=== PATIENT | male | born 1945 | race Caucasian/White ===

== ENCOUNTER 2018-07-21 23:51 | Inpatient (IN) | payer MEDICARE, OTHER ==
[~2018-07-21] VITALS: Ht 185.4 cm; Wt 151.0 kg
[~2018-07-21 23:51] MED LIST: ASPIRIN81 M2 PO; DOXAZOSIN PO; LANTUS100 UNIT/2 SQ; MULTI-VITAMIN1 EAC4 PO; Z.0.ALLOPURINOL300 M PO; Z.0.ATENOLOL50 MG PO; Z.0.AVODART0.5 MG PO; Z.0.CRESTOR40 MG PO; Z.0.DIOVAN320 MG PO; Z.0.HUMULIN R500 UNI IJ; Z.0.HYDROCHLOROTHIA5 PO; Z.0.JANUVIA50 MG PO; Z.0.LEVOXYL137 MCG PO; Z.6.FISH OIL 1,0001 PO; [UNRECOGNIZED DRUG - CODE] PO; [UNRECOGNIZED DRUG - OTHER] PO
[2018-07-22] VITALS (8 sets, daily range): BP systolic 116–195; BP diastolic 65–93
[2018-07-22 00:18] LABS: BASOPHILS % 0.4 % (0.0-1.0); EOSINOPHILS % 0.3 % (0.0-6.0); HEMOGLOBIN 13.9 g/dL (14.0-18.0); LYMPHOCYTES # (AUTO) 0.5 (1.0-3.2); LYMPHOCYTES % 5.9 % (18.0-39.1); MEAN CORPUSCULAR HEMOGLOBIN 31.4 pg (28-32); MEAN CORPUSCULAR HGB CONC 33.9 g/dL (31-35); MEAN CORPUSCULAR VOLUME 92.6 fL (81-99); MONOCYTES # (AUTO) 0.7 (0.2-0.8); MONOCYTES % 9.2 % (4.4-11.3); NEUTROPHILS # (AUTO) 6.7 (2.1-6.9); NEUTROPHILS % 83.9 % (38.7-80.0); PLATELET COUNT 211 x10e3/uL (140-360); RED BLOOD COUNT 4.43 x10e6/uL (4.3-5.7); RED CELL DISTRIBUTION WIDTH 13.6 % (11.7-14.4)
[2018-07-22] MEDS ORDERED: BRIMONIDINE TART5 ML OU (00:24)
[2018-07-22] MEDS ORDERED: SUPER B-50 COM1 EACH PO (00:24)
[2018-07-22] MEDS ORDERED: HYDROCHLOROTHIA25 MG PO (00:24)
[2018-07-22] MEDS ORDERED: CRESTOR20 MG PO (00:24)
[2018-07-22] MEDS ORDERED: VESICARE5 MG PO (00:24)
[2018-07-22] MEDS ORDERED: CEPHALEXIN500 MG PO (00:24)
[2018-07-22] MEDS ORDERED: TRAVATAN Z5 ML OU (00:24)
[2018-07-22] MEDS ORDERED: LOSARTAN POTASS25 MG PO (00:24)
[2018-07-22] MEDS ORDERED: VITAMIN D32000 UNIT PO (00:24)
[2018-07-22] MEDS ORDERED: FISH OIL 1,0001 EAC3 PO (00:24)
[2018-07-22] MEDS ORDERED: ZYRTEC10 MG PO (00:24)
[2018-07-22] MEDS ORDERED: VANCOMYCIN 1GM/NS 250 ML 250 ML IV ONE (00:30)
[2018-07-22 00:40] LABS: ANION GAP 14.3 mmol/L (8-16); CALCIUM 9.5 mg/dL (8.4-10.2); CREATININE, SERUM 1.77 mg/dL (0.72-1.25); POTASSIUM 3.3 mmol/L (3.5-5.1)
[2018-07-22 00:55] LABS: ALBUMIN 2.4 g/dL (3.5-5.0); ALBUMIN/GLOBULIN RATIO 0.5 (0.8-2.0)
[2018-07-22] MEDS: CEFEPIME 1GM/ SOD CHL 50 ML BAG IV SCH ×2 (00:58→12:30)
--- OUTSIDE RECORDS SUMMARY | 2018-07-22 01:03 | XMS REPORT | Summary of Care ---
Author Author COLT HORVATH M.D. Organization Unknown Address Unknown Phone Unavailable Care Team Providers Care Pharmacy Technician Instructor Name Role Phone COLT HORVATH M.D. 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, E11.49) Status: Active Diabetes mellitus (250.00, E11.9) Status: Active Type 2 diabetes mellitus with other circulatory complications (250.70, E11.59) Status: Active Chronic kidney disease, stage III (moderate) (585.3, N18.3) Status: Active Type 2 diabetes mellitus with other circulatory complication, with long-term current use of insulin (250.70, E11.59) Status: Active Essential (primary) hypertension (401.9, I10) Status: Active Mixed hyperlipidemia (272.2, E78.2) Status: Active Hypothyroidism (244.9, E03.9) Status: Active Vitamin D deficiency (268.9, E55.9) Status: Active Medications Name Dates Details Allopurinol 300 MG Oral Tablet TAKE 1 TABLET DAILY DIRECTED. COLT HORVATH M.D. * Start : 03-Feb-2012 Active Levothyroxine Sodium 137 MCG Oral Tablet TAKE 1 TABLET DAILY DIRECTED. * Quantity: 90 Refills: 1 COLT HORVATH M.D. * Start : 03-Feb-2012 Active Valsartan 160 MG Oral Tablet TAKE 1 TABLET DAILY FOR BLOOD PRESSURE. Per Dr Valencia * Quantity: 90 Refills: 1 COLT HORVATH M.D. * Start : 03-Feb-2012 Active HydroCHLOROthiazide 50 MG Oral Tablet TAKE 1/2 TABLET DAILY DIRECTED. Per Dr Valencia * Refills: 0 COLT HORVATH M.D. * Start : 03-Feb-2012 Active Aspirin 81 MG TABS 1 a day * Refills: 0 COLT HORVATH M.D. * Start : 03-Feb-2012 Active Cardura 1 MG Oral Tablet TAKE 1 TABLET TWICE DAILY.Per Dr Valencia * Refills: 0 COLT HORVATH M.D. * Start : 03-Feb-2012 Active Insulin Syringe 31G X 5/16" 1 ML use with Humulin R U-500 5x a day * Quantity: 1 Refills: 3 COLT HORVATH M.D. * Start : 03-Feb-2012 Active 5 x 100 Unit Box HumuLIN R U-500 (CONCENTRATED) 500 UNIT/ML Subcutaneous Solution INJECT 30- 34 UNITS WITH BREAKFAST AND LUNCH, 36 UNITS WITH SUPPER, 2 TO 4 UNITS WITH SNACKS AND 10 UNITS AT BEDTIMEUSING U-100 SYRINGE * Quantity: 6 Refills: 0 COLT HORVATH M.D. * Start : 22-Jul-2017 Active 20 ML Vial Vitamin D 2000 UNIT Oral Capsule 1 a day * Refills: 0 COLT HORVATH M.D. * Start : 03-Feb-2012 Active Super B-Complex Oral Capsule * Refills: 0 COLT HORVATH M.D. * Start : 03-Feb-2012 Active Crestor 20 MG Oral Tablet TAKE 1 TABLET BY MOUTH ONCE DAILY AT NIGHT DIRECTED * Quantity: 90 Refills: 1 COLT HORVATH M.D. * Start : 03-Feb-2012 Active Fish Oil 1000 MG Oral Capsule 6 a day * Refills: 0 COLT HORVATH M.D. * Start : 03-Feb-2012 Active VESIcare 5 MG Oral Tablet * Refills: 0 COLT HORVATH M.D. * Start : 08-Oct-2012 Active Accu-Chek Multiclix Lancets Check BG 5x a day * Quantity: 5 Refills: 4 COLT HORVATH M.D. * Start : 17-Dec-2012 Active 102 EA Box Avodart 0.5 MG Oral Capsule * Refills: 0 COLT HORVATH M.D. * Start : 31-Aug-2015 Active Accu-Chek Rand Plus In Vitro Strip CHECK BLOOD SUGAR LEVELS FIVE TIMES DAILY * Quantity: 5 Refills: 0 COLT HORVATH M.D. * Start : 25-Apr-2017 Active 100 Strip Box Allergies and Adverse Reactions Name Dates Details Actos TABS (Allergy) Status: Active Past Medical History Name Dates Details History of gout (V12.29, Z87.39) Status: Resolved Personal history of diabetic foot ulcer (V12.29, Z86.31) Status: Resolved Procedures Procedure Dates Details History of Foot Surgery Completed History of Cataract Surgery Completed History of Neurological Surgery Carotid Endarterectomy Completed Immunization Name Dates Details Influenza on: 04-Feb-2012 Influenza Comments: Approx [id number] Fluzone High-Dose 0.5 ML Intramuscular Suspension Prefilled Syringe Lot #: [id number] on: 21-Feb-2015 Prevnar 13 Intramuscular Suspension on: 24-Feb-2015 Pneumococcal polysaccharide vaccine, 23 valent on: 05-May-2015 Influenza Comments: Approx [id number] Fluzone High-Dose 0.5 ML Intramuscular Suspension Prefilled Syringe Lot #: [id number] on: 11-Feb-2017 Family History Name Dates Details Family history of Coronary Artery Disease (V17.49) Comments: Family History Status: Active Family history of Cerebral Artery Occlusion Comments: Family History Status: Active Family history of Diabetes Mellitus (V18.0) Comments: Family History Status: Active Name Dates Details Family history of Diabetes Mellitus (V18.0) Status: Active Social History Name Dates Details - Status: Name Dates Details Never smoker Vital Signs Date Test Result Details No Known Vitals to report Results Date Description Value Details Results not documented Plan of Care Name Dates Details Planned Observations Planned Goals not documented Planned Encounters Appointment; COLT HORVATH M.D. On: 09-Sep-2017 14:45 Instructions Name Dates Details Instructions not documented Encounters Appointment; COLT HORVATH M.D. Encounter Diagnosis: Problem not documented On: 31-Aug-2015 14:45 Appointment; COLT HORVATH M.D. Encounter Diagnosis: Problem not documented On: 04-Jan-2016 13:00 Appointment; COLT HORVATH M.D. Encounter Diagnosis: Problem not documented On: 16-Apr-2016 9:30 Appointment; COLT HORVATH M.D. Encounter Diagnosis: Problem not documented On: 26-Jul-2016 10:00 Appointment; COLT HORVATH M.D. Encounter Diagnosis: Problem not documented On: 05-Nov-2016 14:15 Appointment; COLT HORVATH M.D. Encounter Diagnosis: Problem not documented On: 11-Feb-2017 14:45 Appointment; COLT HORVATH M.D. Encounter Diagnosis: Problem not documented On: 12-Jun-2017 9:30
--- OUTSIDE RECORDS SUMMARY | 2018-07-22 01:03 | XMS REPORT ---
Author Author [facility] Address Unknown Phone Unavailable Care Team Providers Care Engine Monitor Name Role Phone Unavailable Unavailable Payers Payer Name Policy Type Policy Number Effective Date Expiration Date Problems This patient has no known problems. Allergies, Adverse Reactions, Alerts Allergy Name Allergy Type Status Severity Reaction(s) Onset Date Inactive Date Treating Clinician Comments No Known Allergies DA Active U 2011-12-15 00:00:00 Medications This patient has no known medications. Results Test Description Test Time Test Comments Text Results Atomic Results Result Comments - XR CHEST 2 V 2018-06-10 14:02:00 FAX: Walt Robles MD [phone] [place]: O St: REG FAX: Clifton Javier MD [phone] Name: BLANCHE KANG [facility] : 1945 Age/S: 72/M [address] [facility]: [id number] Loc: [place] [address] Phys: Walt Valencia MD Acct: [id number] Dis Date: Status: REG CLI PHONE #: [phone] Exam Date: 06/10/2018 1313 FAX #: [phone] Reason: R05 EXAMS: CPT CODE: [id number] XR CHEST 2 V 34038 HISTORY: R05. COMPARISON: None available. No acute infiltrates, effusion or congestion. Mild scarring. Cardiac silhouette is mildly enlarged. DJD of the dorsal spine. IMPRESSION: No acute infiltrates, effusion or congestion. at 1402 Reported and signed by: Miki Blanco M.D. CC: Walt Valencia MD; Clifton Mackenzie MD Technologist: NEDA Torres) Trnscrd Date/Time/By: 06/10/2018 (1402) : By: [email or web address] PAGE 1 Signed Report
[2018-07-22] MEDS ORDERED: DEXTROSE 50% SYRINGE 50 ML IV PRN ×2 (01:15→11:45)
--- NOTE | 2018-07-22 01:25 | Diagnostic Imaging Report ---
EXAMINATION: PA and lateral views of the chest. COMPARISON: None CLINICAL HISTORY: Fever DISCUSSION: Lines/tubes: None. Lungs: The lungs are well inflated and clear. No pneumonia or pulmonary edema. Pleura: No pleural effusion or pneumothorax. Heart and mediastinum: The cardiomediastinal silhouette is normal. Bones and soft tissues: Callus of right sixth rib posteriorly. Skeletal hyperostosis. IMPRESSION: No acute cardiopulmonary abnormalities. Signed by: Dr. Matt Hollingsworth M.D. on 07/22/2018 1:22 AM
[2018-07-22] MEDS ORDERED: POTASSIUM CHLORIDE 20 MEQ TAB CR PO STA (01:28)
--- NOTE | 2018-07-22 01:28 | Diagnostic Imaging Report ---
Exam: Right ankle 3 views and foot 3 views History: Pain Comparison: None. Findings: No acute fracture. Remote fracture of the medial malleolus. Advanced arthropathy of the midfoot with prior fusion. Fractured lateral screw. Large dorsal and plantar calcaneal enthesophytes. Impression: Soft tissue swelling of the foot without acute osseous abnormality Signed by: Dr. Matt Hollingsworth M.D. on 07/22/2018 1:25 AM
--- NOTE | 2018-07-22 02:00 | NUR ---
received patient from er to room 204, AAOx4, resp even and unlabored, no c/o pain or discomfort, able to make needs known, 20G IV to left wrist patent and intact, per pt she notified Dr. Guzman that patient was here and "he will be in to see him tomorrow", bed in lowest and locked position with call light in reach, bed alarm on
[2018-07-22] MEDS ORDERED: SODIUM CHLORIDE 0.9% 250ML 250 ML ONE ×2 (03:08→11:57)
[2018-07-22] MEDS: ACETAMINOPHEN 1000 MG/100 ML IV SCH ×3 (03:13→18:50)
[2018-07-22] MEDS: LEVOTHYROXINE SODIUM 125 MCG TAB PO SCH (05:14)
[2018-07-22 05:40] LABS: BILIRUBIN,URINE NEGATIVE (NEGATIVE); CLARITY,URINE CLEAR (CLEAR); COLOR,URINE YELLOW (YELLOW); KETONES,URINE 1+ (NEGATIVE); LEUKOCYTE ESTERASE ,URINE NEGATIVE (NEGATIVE); NITRITE,URINE NEGATIVE (NEGATIVE); PROTEIN,URINE DIPSTICK 1+ (NEGATIVE); URINE UROBILINOGEN 0.2 mg/dL (0.2 - 1)
[2018-07-22 06:06] LABS: BACTERIA,URINE FEW /HPF; EPITHELIAL CELLS,URINE FEW /LPF; RBC,URINE 0-5 /HPF (0-5); RENAL EPITHELIAL CELLS,URINE RARE; TRANSITIONAL EPI CELLS,URINE RARE; WBC,URINE (MAN) 0-5 /HPF (0-5)
--- NOTE | 2018-07-22 07:59 | NUR ---
aware of new consult
--- NOTE | 2018-07-22 08:30 | NUR ---
paged to notify of temp 100.7
[2018-07-22] MEDS: SOLIFENACIN SUCCINATE 5 MG TAB PO SCH (08:47)
[2018-07-22] MEDS: PANTOPRAZOLE SOD 40 MG TABEC PO SCH (08:47)
[2018-07-22] MEDS: ALLOPURINOL 300 MG TAB PO SCH (08:47)
[2018-07-22] MEDS: LOSARTAN POTASSIUM 25 MG TAB PO SCH (08:47)
[2018-07-22] MEDS: HYDROCHLOROTHIAZIDE 25 MG TAB PO SCH (08:47)
[2018-07-22] MEDS ORDERED: OMEGA 3 POLYUNSAT FATTY ACIDS 1000 MG SOFTGEL PO SCH (09:00)
--- NOTE | 2018-07-22 12:03 | NUR ---
aware of T 101.1 Scheduled acetaminophen given. Will continue to monitor
--- NOTE | 2018-07-22 12:06 | Consultation ---
DATE OF CONSULTATION: 07/22/2018 Admitted through the emergency room. REASON FOR CONSULTATION: Cellulitis of the right foot. HISTORY OF PRESENT ILLNESS: This is a pleasant 72-year-old white male, who is very well known to me, who called several days ago for redness and swelling to his right foot. He was called in for some oral antibiotics, did not respond. called last night about 10 p.m. saying that his foot started getting worse and he started having chills. At this point, he was told to present to the emergency room for admission and IV antibiotics. Since he has been in the hospital, he has been feeling a little bit better. Did have a peak temp of 100.7 this morning. He is feeling better now. Denies any nausea, vomiting, or chills at this point. PAST MEDICAL HISTORY: Remarkable for hypercholesteremia, hypertension, Charcot foot, and insulin-dependent diabetes x20 plus years. PAST SURGICAL HISTORY: Remarkable for multiple foot surgery. ALLERGIES: THE PATIENT DENIES. CURRENT MEDICATIONS: Note listed in chart including IV cefepime. SOCIAL HISTORY: Denies any smoking, drinking, or recreational drug use. Lives with his . Has no kids. FAMILY HISTORY: Noncontributory. REVIEW OF SYSTEMS: CARDIAC: Denies any palpitations or arrhythmias. RESPIRATORY: Denies any shortness of breath or productive cough. GASTROINTESTINAL: Denies any diarrhea or constipation. GENITOURINARY: Denies hematuria or problems with voiding. LABS: White blood cell count 7.9 and hemoglobin 13.9 with a platelet count of 211. PHYSICAL EXAMINATION: VITAL SIGNS: Temp 100.7, pulse rate 86, respirations 18, blood pressure 195/87, and O2 saturation 95%. PODIATRIC: Reveals the following: Vasculature, pedal pulses of both the DP and PT are palpable. NEUROLOGIC: Reveals complete loss of protective sensation when utilizing [place] 5.07 monofilament wire. MUSCULOSKELETAL: Muscle mass to be asymmetrical, some swelling noted to the right foot and leg when compared to the left. Cellulitis noted up to the knee. DERMATOLOGICAL: Reveals grade 1/2 lesion at midfoot. Plantar aspect of the right foot has swelling to the mid foot aspect secondary to Charcot deformity. IMAGING: X-rays of both the ankle and foot were inspected gas in the tissue or osteomyelitic changes. ASSESSMENT: Charcot foot with cellulitis and grade 2 lesion. PLAN: We will start applying Bactroban ointment to the lesion. We will continue IV antibiotics. Continue to monitor patient. The patient will possibly need at least 5 to 7 days of IV antibiotics. We will continue to follow. LENA Baker/APURVA /[id number]
[2018-07-22] MEDS: INSULIN LISPRO 100 UNIT/1 ML 3ML VIAL SQ SCH ×3 (12:30→20:45)
--- NOTE | 2018-07-22 13:09 | NUR ---
CASE MANAGEMENT ASSESSMENT Ingredient Scaler Helper to bedside to discuss plan of care with patient/family. CM/SW role and care transitions discussed. Anticipated discharge plan discussed along with duration of care. CM/SW discussed patients right to make decisions in care. CM/SW work hours given. Patient lives: with Angeline Admit/Transfer: thru ED Hospital/ER visits since last admit: none POA/Emergency contact: Angeline Sanches [phone] Current/Previous Home Health: none PCP/Follow-up Care: Dr. Mackenzie, advised pt follow up with MD within 5 days of discharge. Pt will schedule an appointment. Current/Previous DME: none Medications (referring to index hospitalization or the first time you were in the hospital) a. Were changes made in your medications when you were in the hospital on [date of index hospitalization]? n/a b. Did you understand the changes? n/a c. Were you able to obtain your new medications right away? n/a d. Were you able to take your medications like the doctor wanted you to? n/a e. Did the hospital give you an accurate, easy to understand list of medications when you left? n/a Scale of 1-10 how comfortable does patient feel with disease management in outpatient settin Other Services: none Employment Status: retired Areas of Concerns: none Referral Needs: none Education Needs: medical management IMM/FERNANDEZ given and signed (if applicable): IMM given on admission Goal for discharge: home with no needs CM/SW left business card at the bedside with contact information. Name and number was also written on the patients whiteboard. Patient verbalized understanding of discussion. CM will follow-up with ongoing discharge and transition of care needs.
[2018-07-22] MEDS: MUPIROCIN 2% OINT 22 GM TUBE TOP SCH (13:18)
[2018-07-22] MEDS ORDERED: VANCOMYCIN HCL 1 GM in SODIUM CHLORIDE 0.9% 250ML 250 ML IV SCH (15:45)
[2018-07-22] MEDS ORDERED: INSULIN LISPRO 100 UNIT/1 ML 3ML VIAL SQ SCH (16:30)
[2018-07-22] MEDS: OMEGA 3 POLYUNSAT FATTY ACIDS 1000 MG SOFTGEL PO SCH (16:46)
[2018-07-22] MEDS: VANCOMYCIN 1GM/NS 250 ML 250 ML IV SCH (16:46)
--- NOTE | 2018-07-22 17:11 | NUR ---
WOUND CARE CONSULTATION - INITIAL EVALUATION Patient admitted from Home to ER for RLE Pain DX: Cellulitis of Right Foot. HX: Multiple Foot surgeries, Charcot Foot, Hypercholesterolemia, HTN, Diabetes Type 2. WBC7.96 HGB13.9 HCT41 NEUT%83.9 GES243 IMAGING: Right Ankle and Foot - Soft Tissue Swelling. WC Consulted for Right Foot Ulcer - Dr Pk Guzman DPM on case and managing foot ulcer. - Dr Britt on case for Infectious Diseases and IV ABX management. PATIENT VISIT: - Spouse at bedside. Patient in good spirits. AAOX3 - Presents with Right Foot DFU at Plantar Mid Foot. No drainage noted. Periwound hardened. RLE at mcdonald reddened, taught and shiny, non pitting. Bactroban ordered per Dr. Guzman for foot ulcer. Dressing changed as prescribed Measurements documented on Wound Assessment Section. Will follow up as needed. Dr. Guzman Managing care at this time. No further follow up/interventions required at this time from WCN standpoint. No pressure ulcers identified. Sina Score 23. Regular Visco Mattress in Place. Thank you for consulting with Wound Care. Addendum: 07/22/18 at 1720 by Randal Clements RN Amended: Links added.
--- NOTE | 2018-07-22 19:08 | NUR ---
Report given to oncoming nurse. Sitting on recliner. at bedside. AAOX4 to time, person, place. Respirations even and unlabored. Dressing to right foot clean, dry, and intact.
[2018-07-22] MEDS: DUTASTERIDE 0.5 MG CAP PO SCH (20:45)
--- NOTE | 2018-07-22 23:36 | Progress Note ---
DATE: SUBJECTIVE: The patient is with cellulitis of the right foot. This patient who is a very pleasant 72-year-old white male, history of obesity, history of diabetes mellitus, history of hypertension, history of neuropathy. The patient started to have redness, swelling of his right foot. He was called an oral antibiotic, he is not so sure what they are. He has been followed by Dr. Guzman as an outpatient. The patient comes in with redness and swelling of his foot. He had low fever of 100.7, not feeling well. Upon arrival, the patient was admitted. I am asked to see him. He is currently lying in bed comfortably. He says since he came he was feeling slightly better, however, the foot remains redness and swelling, going all the way to the mid leg. PAST MEDICAL HISTORY: Hypertension, hypercholesteremia, neuropathy with diabetes mellitus neuropathy, diabetes mellitus more than 20 years. PAST SURGICAL HISTORY: Multiple foot surgeries before. ALLERGIES: NKA. SOCIAL HISTORY: There is no smoking, drug abuse, or alcohol abuse. FAMILY HISTORY: Diabetes mellitus and hypertension. REVIEW OF SYSTEMS: At the present time: HEENT: Negative. PULMONARY: Negative. CARDIAC: Negative. : Negative. SKIN: There are no other rashes. LABORATORY DATA: His laboratory data reviewed. White count 7.96, hemoglobin 13.9, his hematocrit is 41. Sodium 132, potassium 3.3, creatinine 1.77. MEDICATION LIST: He is on Bactroban, insulin, cefepime. PHYSICAL EXAMINATION: GENERAL: He is currently alert, oriented, does not seem to be in acute distress. VITAL SIGNS: Stable, currently afebrile. HEENT: He is not icteric. Normocephalic. NECK: Supple. No JVD. No lymphadenopathy. No thyromegaly. CHEST: Clear bilateral. HEART: S1, S2. No S3, S4, or murmur. ABDOMEN: Soft, obese, in no tenderness. No hepatosplenomegaly. EXTREMITIES: There is erythema, there is edema, which is involving in the right foot. The sensation was compromised to pinprick and light touch. The pulse is present but weak distally. IMPRESSION: 1. Cellulitis in a patient with diabetes mellitus, neuropathy, obesity, chronic kidney disease, concerned about peripheral vascular disease. 2. Charcot joint, affecting his both feet, more so on the right. 3. We will put the patient on vancomycin 1 g q.24 hours. Obtain trough. Keep the foot elevated. The patient does have a stage II small ulcer on the plantar aspect of the foot. Podiatry is following. 4. Diabetes mellitus. 5. Neuropathy with Charcot joint. 6. Hypertension. 7. Obesity. 8. Chronic kidney disease. Continue vancomycin, we will add it to the cefepime, which he is on for it for now. We will reassess on a daily basis. Keep the foot elevated. He would benefit from supportive shoes for his ankle. 9. Neuropathy. 10. Discussed with the patient. MD NESTOR Kraft/APURVA /[id number]
[2018-07-23] VITALS: BP 158/72
[2018-07-23] MEDS: ACETAMINOPHEN 1000 MG/100 ML IV SCH
[2018-07-23] MEDS: CEFEPIME 1GM/ SOD CHL 50 ML BAG IV SCH ×2 (00:41→12:35)
[2018-07-23 04:00] VITALS: BP 166/73
[2018-07-23] MEDS: LEVOTHYROXINE SODIUM 125 MCG TAB PO SCH (05:39)
[2018-07-23 05:48] LABS: BASOPHILS % 0.4 % (0.0-1.0); EOSINOPHILS # (AUTO) 0.2 (0.0-0.4); EOSINOPHILS % 2.1 % (0.0-6.0); HEMATOCRIT 39.9 % (38.2-49.6); HEMOGLOBIN 13.2 g/dL (14.0-18.0); LYMPHOCYTES % 11.8 % (18.0-39.1); MEAN CORPUSCULAR HEMOGLOBIN 30.8 pg (28-32); MEAN CORPUSCULAR HGB CONC 33.1 g/dL (31-35); MEAN CORPUSCULAR VOLUME 93.2 fL (81-99); MONOCYTES # (AUTO) 1.2 (0.2-0.8); NEUTROPHILS # (AUTO) 5.8 (2.1-6.9); NEUTROPHILS % 70.3 % (38.7-80.0); PLATELET COUNT 233 x10e3/uL (140-360); RED BLOOD COUNT 4.28 x10e6/uL (4.3-5.7); RED CELL DISTRIBUTION WIDTH 13.7 % (11.7-14.4)
[2018-07-23 06:04] LABS: ALBUMIN 2.2 g/dL (3.5-5.0); ALBUMIN/GLOBULIN RATIO 0.5 (0.8-2.0); ANION GAP 12.5 mmol/L (8-16); CREATININE, SERUM 1.48 mg/dL (0.72-1.25); POTASSIUM 4.5 mmol/L (3.5-5.1)
[2018-07-23] MEDS: PANTOPRAZOLE SOD 40 MG TABEC PO SCH (08:22)
[2018-07-23] MEDS: INSULIN LISPRO 100 UNIT/1 ML 3ML VIAL SQ SCH ×4 (08:22→21:00)
[2018-07-23] MEDS: LOSARTAN POTASSIUM 25 MG TAB PO SCH (08:23)
[2018-07-23] MEDS: HYDROCHLOROTHIAZIDE 25 MG TAB PO SCH (08:23)
[2018-07-23] MEDS: MUPIROCIN 2% OINT 22 GM TUBE TOP SCH (08:23)
[2018-07-23] MEDS: ALLOPURINOL 300 MG TAB PO SCH (08:23)
[2018-07-23] MEDS: SOLIFENACIN SUCCINATE 5 MG TAB PO SCH (08:23)
[2018-07-23] MEDS: OMEGA 3 POLYUNSAT FATTY ACIDS 1000 MG SOFTGEL PO SCH ×2 (08:23→17:03)
--- NOTE | 2018-07-23 11:28 | NUR ---
Nigel Varela aware of blood culture results and of Fever within the last 48 hours
[2018-07-23 12:00] VITALS: BP 175/75
[2018-07-23] MEDS ORDERED: SODIUM CHLORIDE 0.9% 250ML 250 ML ONE (12:23)
--- NOTE | 2018-07-23 14:44 | Progress Note ---
DATE: 07/23/2018 SUBJECTIVE: The patient is seen at bedside, feeling better. He is denying any history of fever, chills, nausea, or vomiting since he has been getting his IV antibiotics. OBJECTIVE: VITAL SIGNS: Afebrile, pulse rate 70, respirations 19, blood pressure 166/73, and O2 saturation 95%. EXTREMITIES: There is still positive cellulitis of the mid leg aspect of the right lower extremity. There is some erythema to the plantar aspect right foot with a grade 2, possibly 3 ulceration secondary to Charcot deformity, measuring 1.5 to 2 cm in diameter on plantar aspect of right foot. LAB: White blood cell count of 8.19 and hemoglobin 13.2 with a platelet count of 233. ASSESSMENT: Diabetic neuropathy, Charcot foot, grade 2/grade 3 ulcer with cellulitis. PLAN: We will continue IV antibiotics. Excisional sharp debridement will be scheduled for tomorrow morning at bedside. Cultures will be taken. Continue Bactroban ointment. Continue offloading. LENA Baker/APURVA /[id number]
[2018-07-23 16:19] VITALS: BP 185/73
[2018-07-23] MEDS: VANCOMYCIN 1GM/NS 250 ML 250 ML IV SCH (17:03)
[2018-07-23] MEDS: CLONIDINE HCL 0.1 MG TAB PO PRN (17:50)
--- NOTE | 2018-07-23 19:05 | NUR ---
Report given to oncoming nurse of patient's status. sitting on recliner. No s/s of acute distress noted. Dressing to right foot clean, dry, and intact.
[2018-07-23 20:10] VITALS: BP 133/70
--- NOTE | 2018-07-23 20:13 | NUR ---
RECEIVED PT IN BED AOX4 RESPIRATIONS ARE EVEN AND UNLABORED .PLANTAR RT FOOT WITH ULCER NPO AFTER MIDNIGHT FOR DEBRIDEMENT.CONTINUE TO MONITOR
[2018-07-23] MEDS: DUTASTERIDE 0.5 MG CAP PO SCH (21:00)
[2018-07-24] VITALS (9 sets, daily range): BP systolic 133–172; BP diastolic 61–84
[2018-07-24] MEDS: CEFEPIME 1GM/ SOD CHL 50 ML BAG IV SCH (01:00)
[2018-07-24] MEDS: LEVOTHYROXINE SODIUM 125 MCG TAB PO SCH (05:33)
--- NOTE | 2018-07-24 06:26 | NUR ---
PT RESTING AND DENIES PAIN PT IS NPO FOR THE DEBRIDEMENT OF RT FOOT .CALL LIGHT WITH IN REACH .CONTINUE TO MONITOR
[2018-07-24] MEDS: INSULIN LISPRO 100 UNIT/1 ML 3ML VIAL SQ SCH ×4 (07:30→21:00)
--- NOTE | 2018-07-24 07:34 | NUR ---
REPORT GIVEN TO ON COMING NURSE
[2018-07-24] MEDS: OMEGA 3 POLYUNSAT FATTY ACIDS 1000 MG SOFTGEL PO SCH ×2 (08:56→17:31)
[2018-07-24] MEDS: MUPIROCIN 2% OINT 22 GM TUBE TOP SCH (08:56)
[2018-07-24] MEDS: ALLOPURINOL 300 MG TAB PO SCH (08:56)
[2018-07-24] MEDS: SOLIFENACIN SUCCINATE 5 MG TAB PO SCH (08:56)
[2018-07-24] MEDS: PANTOPRAZOLE SOD 40 MG TABEC PO SCH (09:10)
[2018-07-24] MEDS: HYDROCHLOROTHIAZIDE 25 MG TAB PO SCH (09:10)
[2018-07-24] MEDS: LOSARTAN POTASSIUM 25 MG TAB PO SCH (09:10)
[2018-07-24] MEDS: CEFTRIAXONE SOD 1 GM/NS 50 ML 50 ML IV SCH (12:38)
--- NOTE | 2018-07-24 15:30 | Progress Note ---
DATE: 07/24/2018 SUBJECTIVE: The patient is seen at bedside, doing somewhat better. He is denying any history of fever, chills, nausea, or vomiting. OBJECTIVE: VITALS: Afebrile, pulse rate 79, respirations 18, blood pressure 160/72, O2 saturation 95%. EXTREMITIES: Positive cellulitis to the foot and leg, but seems to be getting better with the IV antibiotics. Has a grade 2/3 ulceration to plantar aspect of right foot with Charcot foot deformity. Pedal pulses are palpable. LABORATORY DATA: Labs show white blood cell count of 8.19. ASSESSMENT: Grade 2/3 ulceration of right foot, Charcot foot, cellulitis up to the mid leg area. PLAN: Sharp excisional debridement of the ulcer was carried down to muscle very close to bone. Devitalized tissue sharply excised until good viable bleeding tissue was achieved. Deep cultures were taken for aerobic and anaerobic growth. We will continue Bactroban ointment covered by diluted wet-to-dry Betadine dressing. We will continue IV antibiotics and offloading as best as possible. LENA Baker/APURVA /[id number]
--- NOTE | 2018-07-24 19:15 | NUR ---
Patient received sitting in recliner chair. at bedside. AAO x 3. No c/o pain. No signs of respiratory distress. Patient instructed to call for assistance when needed. Call light within reach.
[2018-07-24] MEDS: DUTASTERIDE 0.5 MG CAP PO SCH (21:11)
[2018-07-25] VITALS (7 sets, daily range): BP systolic 136–183; BP diastolic 67–76
[2018-07-25] MEDS: CEFTRIAXONE SOD 1 GM/NS 50 ML 50 ML IV SCH ×2 (00:25→12:28)
[2018-07-25] MEDS: LEVOTHYROXINE SODIUM 125 MCG TAB PO SCH (06:14)
--- NOTE | 2018-07-25 06:34 | NUR ---
Wound dressing done as per MD's orders. Patient tolerated well.
--- NOTE | 2018-07-25 07:08 | NUR ---
Dr. Mackenzie here to see patient. New order received.
[2018-07-25] MEDS ORDERED: ACETAMINOPHEN 325 MG TAB PO PRN (07:15)
[2018-07-25] MEDS: INSULIN LISPRO 100 UNIT/1 ML 3ML VIAL SQ SCH ×3 (07:30→20:45)
[2018-07-25] MEDS: MUPIROCIN 2% OINT 22 GM TUBE TOP SCH (08:09)
[2018-07-25] MEDS: PANTOPRAZOLE SOD 40 MG TABEC PO SCH (08:29)
[2018-07-25] MEDS: LOSARTAN POTASSIUM 25 MG TAB PO SCH (08:29)
[2018-07-25] MEDS: SOLIFENACIN SUCCINATE 5 MG TAB PO SCH (08:29)
[2018-07-25] MEDS: OMEGA 3 POLYUNSAT FATTY ACIDS 1000 MG SOFTGEL PO SCH ×2 (08:29→17:15)
[2018-07-25] MEDS: ALLOPURINOL 300 MG TAB PO SCH (08:29)
[2018-07-25] MEDS: HYDROCHLOROTHIAZIDE 25 MG TAB PO SCH (08:29)
--- NOTE | 2018-07-25 12:04 | Progress Note ---
DATE: 07/25/2018 SUBJECTIVE: The patient is seen at bedside, accompanied by , doing somewhat better. Still some swelling and tenderness to the right lower extremity. OBJECTIVE: VITAL SIGNS: Afebrile, pulse rate 75, respirations 20, blood pressure 183/74, and O2 saturation 98%. EXTREMITIES: Positive cellulitis and edema noted to the right lower extremity better since the ulceration was debrided. Ulcer healing with pedal pulses palpable. ASSESSMENT: Grade 3 ulcer, Charcot foot with cellulitis and pitting edema. PLAN: The patient will need to continue IV antibiotics for at least 5 to 7 more days. Continue local wound care. Weightbearing strictly with the surgical shoe. We will continue to follow. The patient is to continue ceftriaxone IV piggyback. LENA Baker/APURVA /[id number]
--- NOTE | 2018-07-25 17:29 | NUR ---
new orders received for Humalog SS from .
[2018-07-25] MEDS: DUTASTERIDE 0.5 MG CAP PO SCH (20:45)
[2018-07-26] VITALS (7 sets, daily range): BP systolic 123–171; BP diastolic 81–87
[2018-07-26] MEDS: CEFTRIAXONE SOD 1 GM/NS 50 ML 50 ML IV SCH ×3 (00:18→23:56)
[2018-07-26] MEDS: LEVOTHYROXINE SODIUM 125 MCG TAB PO SCH (05:32)
[2018-07-26] MEDS: INSULIN LISPRO 100 UNIT/1 ML 3ML VIAL SQ SCH ×4 (07:30→20:20)
[2018-07-26] MEDS: SOLIFENACIN SUCCINATE 5 MG TAB PO SCH (08:54)
[2018-07-26] MEDS: MUPIROCIN 2% OINT 22 GM TUBE TOP SCH (08:54)
[2018-07-26] MEDS: HYDROCHLOROTHIAZIDE 25 MG TAB PO SCH (08:54)
[2018-07-26] MEDS: PANTOPRAZOLE SOD 40 MG TABEC PO SCH (08:54)
[2018-07-26] MEDS: LOSARTAN POTASSIUM 25 MG TAB PO SCH (08:54)
[2018-07-26] MEDS: ALLOPURINOL 300 MG TAB PO SCH (08:54)
[2018-07-26] MEDS: OMEGA 3 POLYUNSAT FATTY ACIDS 1000 MG SOFTGEL PO SCH ×2 (08:54→17:29)
[2018-07-26 08:56] LABS: BASOPHILS # (AUTO) 0.1 (0.0-0.1); BASOPHILS % 0.7 % (0.0-1.0); EOSINOPHILS # (AUTO) 0.3 (0.0-0.4); EOSINOPHILS % 3.3 % (0.0-6.0); HEMATOCRIT 43.8 % (38.2-49.6); HEMOGLOBIN 14.5 g/dL (14.0-18.0); LYMPHOCYTES # (AUTO) 1.3 (1.0-3.2); LYMPHOCYTES % 15.9 % (18.0-39.1); MEAN CORPUSCULAR HEMOGLOBIN 31.5 pg (28-32); MEAN CORPUSCULAR HGB CONC 33.1 g/dL (31-35); MONOCYTES # (AUTO) 0.7 (0.2-0.8); MONOCYTES % 8.7 % (4.4-11.3); NEUTROPHILS # (AUTO) 5.7 (2.1-6.9); NEUTROPHILS % 69.9 % (38.7-80.0); PLATELET COUNT 351 x10e3/uL (140-360); RED BLOOD COUNT 4.61 x10e6/uL (4.3-5.7); RED CELL DISTRIBUTION WIDTH 13.3 % (11.7-14.4)
[2018-07-26 09:02] LABS: ANION GAP 14.5 mmol/L (8-16); CALCIUM 9.9 mg/dL (8.4-10.2); CREATININE, SERUM 1.57 mg/dL (0.72-1.25); POTASSIUM 4.5 mmol/L (3.5-5.1)
[2018-07-26] MEDS: DUTASTERIDE 0.5 MG CAP PO SCH (20:25)
[2018-07-27] VITALS (7 sets, daily range): BP systolic 129–156; BP diastolic 70–82
[2018-07-27] MEDS: LEVOTHYROXINE SODIUM 125 MCG TAB PO SCH (05:19)
[2018-07-27] MEDS: INSULIN LISPRO 100 UNIT/1 ML 3ML VIAL SQ SCH ×4 (08:30→21:45)
[2018-07-27] MEDS: PANTOPRAZOLE SOD 40 MG TABEC PO SCH (08:48)
[2018-07-27] MEDS: OMEGA 3 POLYUNSAT FATTY ACIDS 1000 MG SOFTGEL PO SCH ×2 (08:49→16:44)
[2018-07-27] MEDS: LOSARTAN POTASSIUM 25 MG TAB PO SCH (08:49)
[2018-07-27] MEDS: MONTELUKAST SODIUM 10 MG TAB PO SCH (08:49)
[2018-07-27] MEDS: ALLOPURINOL 300 MG TAB PO SCH (08:49)
[2018-07-27] MEDS: HYDROCHLOROTHIAZIDE 25 MG TAB PO SCH (08:49)
[2018-07-27] MEDS: SOLIFENACIN SUCCINATE 5 MG TAB PO SCH (08:49)
[2018-07-27] MEDS: MUPIROCIN 2% OINT 22 GM TUBE TOP SCH (12:39)
[2018-07-27] MEDS: CEFTRIAXONE SOD 1 GM/NS 50 ML 50 ML IV SCH (12:39)
[2018-07-27] MEDS: DUTASTERIDE 0.5 MG CAP PO SCH (21:40)
--- NOTE | 2018-07-27 21:40 | NUR ---
REMOVED LEFT WRIST IV. START NEW IV TO LEFT HAND 20G.
[2018-07-28] VITALS (7 sets, daily range): BP systolic 122–177; BP diastolic 66–82
[2018-07-28] MEDS: CEFTRIAXONE SOD 1 GM/NS 50 ML 50 ML IV SCH ×2 (00:33→12:26)
[2018-07-28] MEDS: CLONIDINE HCL 0.1 MG TAB PO PRN (05:15)
[2018-07-28] MEDS: LEVOTHYROXINE SODIUM 125 MCG TAB PO SCH (05:15)
--- NOTE | 2018-07-28 05:30 | NUR ---
DR MCCRARY SAID IT OKAY TO LET PATIENT USE HOME INSULIN DOSE
[2018-07-28] MEDS: HUMULIN R INSULIN SC SCH ×3 (08:00→16:30)
[2018-07-28] MEDS: OMEGA 3 POLYUNSAT FATTY ACIDS 1000 MG SOFTGEL PO SCH ×2 (08:48→17:21)
[2018-07-28] MEDS: HYDROCHLOROTHIAZIDE 25 MG TAB PO SCH (08:48)
[2018-07-28] MEDS: ALLOPURINOL 300 MG TAB PO SCH (08:48)
[2018-07-28] MEDS: MONTELUKAST SODIUM 10 MG TAB PO SCH (08:48)
[2018-07-28] MEDS: SOLIFENACIN SUCCINATE 5 MG TAB PO SCH (08:48)
[2018-07-28] MEDS: PANTOPRAZOLE SOD 40 MG TABEC PO SCH (08:48)
[2018-07-28] MEDS: LOSARTAN POTASSIUM 25 MG TAB PO SCH (08:49)
[2018-07-28] MEDS: MUPIROCIN 2% OINT 22 GM TUBE TOP SCH (11:30)
--- NOTE | 2018-07-28 11:33 | NUR ---
Patient administered 36 units of his own insulin per the eMAR for a blood glucose of 329.
--- NOTE | 2018-07-28 14:40 | NUR ---
FAVIAN SPOKE TO DR. MCCRARY REGARDING PATIENT PLAN OF CARE AND DISCHARGE PLAN. GAVE ORDERS FOR HOME HEALTH WITH PENITENTIARY EVAL, PT/OT EVAL AND TREAT AND WOUND CARE. ORDER RECEIVED AND PLACED IN [facility]. BETO ELIZABETH CM NOTIFIED. ANTICIPATED DISCHARGE DATE 1-2 DAYS.
--- NOTE | 2018-07-28 16:41 | NUR ---
Nutrition Screen Note RD Recommendation for Physician: - Add 1999 ADA to current diet Plan of Care: RD following, monitoring for tolerance and adequacy Nutrition reason for involvement: LOS Primary Diagnose(s): diabetic food ulcer with necrosis PMH: HTN, hypercholesterolemia, DM, DM neuropathy Ht: 73 in Wt: 350 lb BMI: 46.2 kg/m2 IBW: [address] Assessment: (07/28) 72 YOM admitted for diabetic foot ulcer, pt seen today for LOS. Pt discussed during am rounds, no issues reported. 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 Pt denies any GI distress or difficulties chewing or swallowing. Pt denies any wt loss, reports UBW of 350#. Chart reviewed. Labs and meds reviewed, elevated BG noted- pt not on DM diet restrictions and is now on home insulin regimen. Will monitor and continue to follow. Current Diet: Cardiac diet Malnutrition Evaluation (07/28/18) The patient does not meet criteria for a specified degree of malnutrition at this time. Will re-evaluate at follow-up as appropriate. Diet Education Needs Assessment: Diet education not indicated. Nutrition Care Level: Low Signed: Bety James RD, LD, CNSC
[2018-07-28] MEDS: DUTASTERIDE 0.5 MG CAP PO SCH (21:07)
[2018-07-29] VITALS (10 sets, daily range): BP systolic 133–176; BP diastolic 63–84
[2018-07-29] MEDS: CEFTRIAXONE SOD 1 GM/NS 50 ML 50 ML IV SCH ×2 (00:27→13:02)
--- NOTE | 2018-07-29 03:52 | Progress Note ---
DATE: 07/28/2018 SUBJECTIVE: The patient at bedside, doing better. Denies any history of fever, chills, nausea, or vomiting. OBJECTIVE: VITAL SIGNS: Afebrile, pulse rate 67, respirations 20, blood pressure 122/66, O2 saturation 97%. EXTREMITIES: Right lower extremity still shows some cellulitis and edema, but decreasing. There is some drainage through the ulceration site. Gram stain was positive for Enterococcus faecalis . Ulceration healing slowly. Pedal pulses are palpable. ASSESSMENT: Edema, cellulitis with a grade 3 ulcer healing. PLAN: We will continue local wound care. Continue IV antibiotics. The patient may need IV antibiotics for at least 3 to 4 more days . LENA Baker/SHANNANL /[id number]
[2018-07-29] MEDS: LEVOTHYROXINE SODIUM 125 MCG TAB PO SCH (06:07)
[2018-07-29] MEDS: CLONIDINE HCL 0.1 MG TAB PO PRN (06:07)
--- NOTE | 2018-07-29 07:00 | NUR ---
BEDSIDE SHIFT REPORT FROM NIGHT RN. PT DENIES NEEDS AT THIS TIME.
[2018-07-29] MEDS: HUMULIN R INSULIN SC SCH ×3 (08:00→17:18)
[2018-07-29] MEDS: OMEGA 3 POLYUNSAT FATTY ACIDS 1000 MG SOFTGEL PO SCH ×2 (08:03→17:15)
[2018-07-29] MEDS: PANTOPRAZOLE SOD 40 MG TABEC PO SCH (08:03)
[2018-07-29] MEDS: HYDROCHLOROTHIAZIDE 25 MG TAB PO SCH (08:04)
[2018-07-29] MEDS: LOSARTAN POTASSIUM 25 MG TAB PO SCH (08:04)
[2018-07-29] MEDS: SOLIFENACIN SUCCINATE 5 MG TAB PO SCH (08:04)
[2018-07-29] MEDS: MONTELUKAST SODIUM 10 MG TAB PO SCH (08:04)
[2018-07-29] MEDS: ALLOPURINOL 300 MG TAB PO SCH (08:04)
[2018-07-29] MEDS: MUPIROCIN 2% OINT 22 GM TUBE TOP SCH (09:00)
--- NOTE | 2018-07-29 12:24 | Progress Note ---
DATE: 07/29/2018 SUBJECTIVE: The patient is seen at bedside, doing somewhat better. Still has some swelling and redness to the right lower extremity. OBJECTIVE: VITAL SIGNS: Afebrile, pulse rate 58, respirations 18, blood pressure 171/84, and O2 saturation 96%. EXTREMITIES: Ulceration to the plantar aspect right foot is closing, less than 2 cm in diameter. Some indra wound cellulitis present. Positive pitting edema noted to the right lower extremity compared to the left with cellulitis of the mid leg, but resolving slowly. LABS: Noted. ASSESSMENT: Charcot foot, grade 3 ulcer with cellulitis. PLAN: We will continue IV antibiotics. Continue local wound care. Continue offloading as best as possible. We will continue to follow. LENA Baker/APUVRA /[id number]
--- NOTE | 2018-07-29 15:42 | NUR ---
Spoke to pt regarding home health order. Pt stated he was not sure that he needs home health but will try it. States to use any company that takes his insurance. Choice letter signed for [facility]. Signed letter placed in chart. Copy to pt. IMM letter delivered and explained to pt. He verbalized understanding. Signed copy placed in chart. Copy to pt.
--- NOTE | 2018-07-29 17:41 | NUR ---
Referral for home health was faxed to [facility] at [phone] / P [phone]
--- NOTE | 2018-07-29 19:00 | NUR ---
BEDSIDE REPORT GIVEN TO GENERAL HANDLING SUPERVISOR RN
[2018-07-29] MEDS: DUTASTERIDE 0.5 MG CAP PO SCH (21:16)
[2018-07-30] VITALS (7 sets, daily range): BP systolic 137–178; BP diastolic 69–81
[2018-07-30] MEDS: CEFTRIAXONE SOD 1 GM/NS 50 ML 50 ML IV SCH ×3 (00:15→23:57)
[2018-07-30] MEDS: LEVOTHYROXINE SODIUM 125 MCG TAB PO SCH (05:44)
--- NOTE | 2018-07-30 07:00 | NUR ---
BEDSIDE SHIFT REPORT FROM NIGHT RN. PT DENIES NEEDS AT THIS TIME.
[2018-07-30] MEDS: HUMULIN R INSULIN SC SCH ×3 (07:28→16:27)
[2018-07-30] MEDS: PANTOPRAZOLE SOD 40 MG TABEC PO SCH (08:20)
[2018-07-30] MEDS: LOSARTAN POTASSIUM 25 MG TAB PO SCH (08:21)
[2018-07-30] MEDS: HYDROCHLOROTHIAZIDE 25 MG TAB PO SCH (08:21)
[2018-07-30] MEDS: OMEGA 3 POLYUNSAT FATTY ACIDS 1000 MG SOFTGEL PO SCH ×2 (08:22→16:24)
[2018-07-30] MEDS: SOLIFENACIN SUCCINATE 5 MG TAB PO SCH (08:23)
[2018-07-30] MEDS: ALLOPURINOL 300 MG TAB PO SCH (08:23)
[2018-07-30] MEDS: MONTELUKAST SODIUM 10 MG TAB PO SCH (08:24)
--- NOTE | 2018-07-30 09:16 | NUR ---
RT FOOT CLEANED AND DRESSING APPLIED.
--- NOTE | 2018-07-30 09:29 | Discharge Summary ---
DISCHARGE DIAGNOSES: 1. Right foot cellulitis. 2. Diabetes. 3. Sleep apnea. 4. Hypertension. 5. Chronic kidney disease, stage 3. HISTORY OF PRESENT ILLNESS AND HOSPITAL COURSE: See hospital chart for full details. The patient is a gentleman, presenting with a right foot cellulitis, status post I and D, by Podiatry, which grew out multiple organisms. He was seen by Infectious Disease as well as maintained on IV antibiotics. By the time of discharge, the patient is doing better well. He was switched over to p.o. Levaquin for two more weeks and he will follow up with the Podiatry and Dr. Britt within 1-2 weeks. He was told to return back to the hospital if he still gets any worse. Please see hospital chart for full details. MD TRINH Mccarthy/APURVA /[id number]
[2018-07-30 10:00] LABS: BASOPHILS % 0.5 % (0.0-1.0); EOSINOPHILS # (AUTO) 0.1 (0.0-0.4); EOSINOPHILS % 1.3 % (0.0-6.0); HEMATOCRIT 42.4 % (38.2-49.6); HEMOGLOBIN 14.4 g/dL (14.0-18.0); LYMPHOCYTES # (AUTO) 1.1 (1.0-3.2); LYMPHOCYTES % 13.7 % (18.0-39.1); MEAN CORPUSCULAR HEMOGLOBIN 31.4 pg (28-32); MEAN CORPUSCULAR VOLUME 92.4 fL (81-99); MONOCYTES # (AUTO) 0.6 (0.2-0.8); MONOCYTES % 8.2 % (4.4-11.3); NEUTROPHILS # (AUTO) 5.9 (2.1-6.9); NEUTROPHILS % 75.3 % (38.7-80.0); PLATELET COUNT 479 x10e3/uL (140-360); RED BLOOD COUNT 4.59 x10e6/uL (4.3-5.7); RED CELL DISTRIBUTION WIDTH 13.4 % (11.7-14.4)
--- NOTE | 2018-07-30 13:00 | NUR ---
CALLED DR REAL TO DISCHARGE THE PT. PER DR. REAL DO NOT DISCHARGE THE PT TILL HE SEE THE PT TOMORROW MORNING.
[2018-07-30] MEDS ORDERED: LEVAQUIN500 MG PO (13:04)
[2018-07-30 13:08] LABS: EOSINOPHILS % (MANUAL) 1 % (0-7)
[2018-07-30 13:15] LABS: LYMPHOCYTES % (MANUAL) 15 % (19-48); METAMYELOCYTES % (MANUAL) 2 % (0-0); MONOCYTES % (MANUAL) 9 % (3.4-9.0); MYELOCYTES % (MANUAL) 2 % (0-0); NEUTROPHILS % (MANUAL) 68 % (40-74); PLATELET ESTIMATE ADEQUATE; PLATELET MORPHOLOGY COMMENT NORMAL; PROMYELOCYTES % (MANUAL) 3 % (0-0); RBC MORPHOLOGY COMMENT NORMAL
--- NOTE | 2018-07-30 14:01 | Progress Note ---
DATE: 07/30/2018 SUBJECTIVE: The patient seen at bedside accompanied by family member, doing somewhat better. Still has some redness and swelling to the right lower extremity compared to the left, but he is denying any history of fever, chills, nausea, or vomiting. OBJECTIVE: VITAL SIGNS: Afebrile, pulse 85, respirations 21, blood pressure 148/76, O2 saturation 97%. EXTREMITIES: Still positive cellulitis, edema, ulceration to the plantar aspect of right foot, healing slowly. Still some edema and cellulitis to the dorsal aspect of right foot, pitting. Pedal pulses palpable LABORATORY DATA: Labs noted. Last labs were done on 07/26/2018. ASSESSMENT: Charcot foot with a healing grade 2 ulcer/3 ulceration, right foot. PLAN: We will continue IV antibiotics, ceftriaxone 1 g IV piggyback q.12h. Continue Bactroban ointment. CBC with diff to be ordered today. We will continue to follow. Possible discharge will be coming up this weekend. LENA Baker/APURVA /[id number]
--- NOTE | 2018-07-30 18:00 | NUR ---
DR. REAL CALLED THIS NURSE STATING THAT HE WANTED PT TO HAVE HOME HEALTH FROM [facility]. THIS NURSE TALKED TO MY, MANAGER TECHNICAL SALES WHO STATED THAT THERE WAS NO ORDER OR NOTE SHOWING PREFERENCE TOWARD HOME EULOGIO. STATED THAT PT WAS PRESENTED WITH A CHOICE AND MADE THAT CHOICE SIGNING A CHOICE LETTER AND THAT SHE HAS ALREADY GOTTEN EVERYTHING SET UP WITH ANOTHER HOME HEALTH.
--- NOTE | 2018-07-30 19:00 | NUR ---
BEDSIDE REPORT GIVEN TO LOCOMOTIVE FIRER RN
[2018-07-30] MEDS: DUTASTERIDE 0.5 MG CAP PO SCH (21:43)
[2018-07-31 00:08] VITALS: BP 156/76
[2018-07-31] MEDS: CLONIDINE HCL 0.1 MG TAB PO PRN (04:58)
[2018-07-31] MEDS: LEVOTHYROXINE SODIUM 125 MCG TAB PO SCH (04:58)
[2018-07-31 05:03] VITALS: BP 180/85
--- NOTE | 2018-07-31 07:02 | NUR ---
Received patient sitting on recliner, call light within reach. AAOX4 to time, person, place. Respirations even and unlabored. Dressing to right foot clean, dry, and intact. Instructed patient to use call light for assistance. Voiced understanding.
[2018-07-31 07:59] VITALS: BP 159/82
[2018-07-31] MEDS: PANTOPRAZOLE SOD 40 MG TABEC PO SCH (08:19)
[2018-07-31 08:20] VITALS: BP 159/82
[2018-07-31] MEDS: HYDROCHLOROTHIAZIDE 25 MG TAB PO SCH (08:20)
[2018-07-31] MEDS: LOSARTAN POTASSIUM 25 MG TAB PO SCH (08:20)
[2018-07-31] MEDS: SOLIFENACIN SUCCINATE 5 MG TAB PO SCH (08:20)
[2018-07-31] MEDS: ALLOPURINOL 300 MG TAB PO SCH (08:20)
[2018-07-31] MEDS: OMEGA 3 POLYUNSAT FATTY ACIDS 1000 MG SOFTGEL PO SCH (08:20)
[2018-07-31] MEDS: HUMULIN R INSULIN SC SCH (08:20)
[2018-07-31] MEDS: MONTELUKAST SODIUM 10 MG TAB PO SCH (08:20)
--- NOTE | 2018-07-31 11:25 | NUR ---
Left hand IV discontinued. No signs of infiltration noted. 2x2 gauze and tape placed. Taken via wheelchair to personal car. Accompanied by . AAOX4 to time, person, place, situation. Respirations even and unlabored. Dressing to right foot clean, dry, and intact. Discharge instructions, rx, and all personal belongings taken with patient.
--- NOTE | 2018-07-31 13:47 | NUR ---
DR Onel REAL ROUNDED LAST EVENING AND CX DC ORDERED HOME HEALTH TO BE CHANGED TO [facility] SPOKE WITH PT AND THIS AM WHO AGREE TO GO WITH [facility] BECAUSE DR REAL "RECOMMENDS IT" CM CALLED [facility]; SPOKE WITH JUDY AT [phone] CALLED [facility] [phone] SPOKE WITH EREN FAXED ORDERS TO [phone] CONFIRMATION REC'D CHOICE LETTER SIGNED AND ON CHART COPY TO PT
--- NOTE | 2018-07-31 14:22 | Progress Note ---
DATE: 07/31/2018 SUBJECTIVE: The patient seen at bedside, doing better. Denies any history of fever, chills, nausea, or vomiting. OBJECTIVE: VITAL SIGNS: Afebrile. Vital signs are stable with a pulse rate of 61, respiration 19, blood pressure 180/85, and O2 saturation 94%. EXTREMITIES: Ulceration to the right foot is healing. Still positive cellulitis and edema noted. Ulcer is approximately 2 cm in diameter. LABORATORY DATA: Labs show a white blood cell count of 7.79, hemoglobin 4.4 with a platelet count of 479 and a blood glucose of 59. ASSESSMENT: Grade 2/3 ulcer, Charcot foot, cellulitis. PLAN: We will continue antibiotics at home. Home health will be ordered/[facility] for local wound care. Dressing was changed. Okay for the patient to be discharged today. The patient is to follow up in the office next week. Continue wearing surgical shoe. Instructed on proper diabetic management. Antibiotics prescribed by Dr. Britt and the patient has antibiotics at home, he was instructed to take and bring in the office on next visit. LENA Baker/AUPRVA /[id number]
--- NOTE | 2018-08-01 11:58 | Discharge Summary ---
SECOND DISCHARGE SUMMARY The patient stayed an extra day due to home health arrangements, which was per Podiatry and once this was obtained, he was able to be discharged home. Please see the previous discharge summary for full details. MD TRINH Mccarthy/APURVA /[id number]
== END 2018-07-31 11:25 | disposition home health service (06) | DRG 854 ==
LOC: ER 23:51 → ERHOLD 07-22 01:00 → MED/SURG2 07-22 01:44
PROVIDERS: ADMIT Internal Medicine; ATTEND Internal Medicine
PROC: 0JBQ0ZZ Excision of Right Foot Subcutaneous Tissue and Fascia, Open Approach (ICD-10-PCS; principal; 2018-07-24)
DX: A41.9 Sepsis, unspecified organism (principal); L03.115 Cellulitis of right lower limb; Z68.41 Body mass index [BMI] 40.0-44.9, adult; Z79.4 Long term (current) use of insulin; E11.22 Type 2 diabetes mellitus with diabetic chronic kidney disease; I12.9 Hypertensive chronic kidney disease with stage 1 through stage 4 chronic kidney disease, or unspecified chronic kidney disease; N18.3 Chronic kidney disease, stage 3 (moderate); G47.30 Sleep apnea, unspecified; E78.00 Pure hypercholesterolemia, unspecified; E11.610 Type 2 diabetes mellitus with diabetic neuropathic arthropathy; E87.6 Hypokalemia; E03.9 Hypothyroidism, unspecified; E66.9 Obesity, unspecified; K21.9 Gastro-esophageal reflux disease without esophagitis; B95.2 Enterococcus as the cause of diseases classified elsewhere; B95.5 Unspecified streptococcus as the cause of diseases classified elsewhere; E11.51 Type 2 diabetes mellitus with diabetic peripheral angiopathy without gangrene
CPT/HCPCS: 36415; 71046; 80048; 80053; 80202; 81001; 82948; 83605; 83735; 85025; 87040; 87071; 87186; 87205; 99284; J0692; J0696; J3370; J7050

== ENCOUNTER → 2019-12-07 | Outpatient (CLI) | payer MEDICARE, OTHER ==
[~2019-12-07] MED LIST changes: +BRIMONIDINE TART5 ML OU; +CEPHALEXIN500 MG PO; +CRESTOR20 MG PO; +FISH OIL 1,0001 EAC3 PO; +HYDROCHLOROTHIA25 MG PO; +LEVAQUIN500 MG PO; +LOSARTAN POTASS25 MG PO; +SUPER B-50 COM1 EACH PO; +TRAVATAN Z5 ML OU; +VESICARE5 MG PO; +VITAMIN D32000 UNIT PO; +ZYRTEC10 MG PO
--- NOTE | 2019-12-07 14:20 | Diagnostic Imaging Report ---
EXAM: Renal Ultrasound INDICATION: ^[id number] ^1301 ^OTHER MICROSCOPIC HEMATURIA COMPARISON: None TECHNIQUE: Transverse and longitudinal images of the kidneys and bladder were obtained. FINDINGS: Right Kidney: Length: 11.7 cm Appearance: Normal echogenicity. Collecting system: No hydronephrosis Stones: None Cyst/Mass: None Left Kidney: Length: 12.7 cm Appearance: Normal echogenicity. Collecting system: No hydronephrosis Stones: None Cyst/Mass: None Bladder: No mass or calculi. Bilateral ureteral jets visualized. Bladder volume estimate of 183 cc. IMPRESSION: No hydronephrosis or renal calculi. Signed by: Mary Ellen Cadena MD on 12/07/2019 2:17 PM
== END ==
LOC: US 12:34
PROVIDERS: ATTEND Urology
DX: R31.29 Other microscopic hematuria (principal)
CPT/HCPCS: 76770

== ENCOUNTER → 2019-12-17 | Day surgery (SDC) | payer MEDICARE, OTHER ==
--- NOTE | 2019-12-14 12:42 | Diagnostic Imaging Report ---
EXAMINATION: CHEST 2 VIEWS INDICATION: Pre-operative COMPARISON: Chest radiograph 07/22/2018 FINDINGS: LINES/TUBES:None LUNGS:The lungs are well-inflated. No focal consolidation or pulmonary edema. PLEURA:No pleural effusion or pneumothorax. MEDIASTINUM:The cardiomediastinal silhouette appears normal in size and shape. BONES/SOFT TISSUES:No acute osseous injury. Old right posterior sixth rib fracture. ABDOMEN:No free air under the diaphragm. IMPRESSION: No focal pneumonia or pulmonary edema. Signed by: Mary Ellen Cadena MD on 12/14/2019 12:39 PM
[~2019-12-17] MED LIST changes: +CEFTRIAXONE SOD 1 GM/NS 50 ML 50 ML IV ONE; +DEXAMETHASONE SOD PHOS INJ 4 MG/ML VIAL ONE; +EPHEDRINE SULFATE INJ 50 MG/ML VIAL ONE; +GLYCOPYRROLATE INJ 0.2 MG/ML VIAL ONE; +INSULIN REGULAR, HUMAN 100 UNIT/1 ML 3ML VIAL ONE; +IOPAMIDOL 300MG/ML 50ML INFUS..BTL IV ONE; +LIDOCAINE HCL 2% LOCAL INJ 5 ML SDV VIAL INJ ONE; +NOVOLOG SQ; +ONDANSETRON HCL INJ 2MG/ML 2ML 2 MG/ML VIAL ONE; +PROPOFOL IV EMULSION 10 MG/ML 20 ML VIAL ONE; +ROCURONIUM BROMIDE 10 MG/ML 5ML VIAL IV ONE; +SEVOFLURANE INHAL SOLN 250 ML PEN BTL ONE; +SUCCINYLCHOLINE CHLORIDE 20 MG/ML 10ML VIAL ONE; +TRESIBA100 UNIT/1 SC
[2019-12-17 12:24] VITALS: BP 148/93
--- NOTE | 2019-12-17 12:35 | Operative Report ---
DATE OF PROCEDURE: 12/17/2019 SURGEON: Preet Woodruff MD PREOPERATIVE DIAGNOSIS: Hematuria. POSTOPERATIVE DIAGNOSIS: Hematuria. PROCEDURES: 1. Cystourethroscopy with bilateral ureteral dilatation and bilateral retrograde pyelograms. 2. Supervision fluoroscopy, interpretation of retrograde ureteropyelography. ANESTHESIA: General. ESTIMATED BLOOD LOSS: Minimal. COMPLICATIONS: None. INDICATIONS FOR PROCEDURE: Mr. Narciso Sanches is a 74-year-old male with a history of recurrent microscopic hematuria. He and I had a long discussion about alternatives, risks, and benefits of doing nothing, cystoscopy, IVP retrograde pyelograms, and renal ultrasound. Due to the nephrotoxic risk of dye, I would like to procedure with retrograde pyelogram. He voiced understanding of the options, alternatives, risks, and benefits and elected to proceed. PROCEDURE IN DETAIL: After informed consent was obtained, the patient was taken to the operative suite, placed supine on the operating table, underwent general anesthesia by the anesthesia service. He was placed in the dorsal lithotomy position and sterilely prepped and draped for cystoscopy. A 22.5-Uzbek cystoscope was inserted per urethra. There were wide caliber bulbar urethral strictures multiple. There was trilobar prostatic hypertrophy approximately 5 cm prostate. Panendoscopy of bladder revealed moderate degree of trabeculation. No tumors. No stones. Both ureteral orifices were displaced laterally by the median lobe. Bilateral retrograde pyelograms performed, which revealed tortuous ureters with J hooking bilaterally. Otherwise, normal retrograde pyelograms. The bladder was drained. The patient was awakened from anesthesia and transported to the recovery room in excellent condition. Supervision of fluoroscopy and interpretation of retrograde pyelography: I was present for the entire procedure and supervised fluoroscopy, there was no radiologist present. Attention was turned to the left and right ureteral orifices, which were catheterized. Retrograde pyelograms performed revealing delicate ureter, delicate pelvocaliceal systems. Ureteral tortuosity. IMPRESSION: Bilateral ureteral tortuosity, J hooking, otherwise normal retrograde pyelograms. Preet Woodruff MD ES/MODL /[id number] cc: Clifton Mackenzie MD
== END | disposition home or self-care (01) ==
LOC: OR 08:29
PROVIDERS: ATTEND Urology
DX: R31.9 Hematuria, unspecified (principal); N35.912 Unspecified bulbous urethral stricture, male; N13.8 Other obstructive and reflux uropathy; N40.1 Benign prostatic hyperplasia with lower urinary tract symptoms; R39.14 Feeling of incomplete bladder emptying; R35.1 Nocturia; N32.89 Other specified disorders of bladder; R80.9 Proteinuria, unspecified; N52.9 Male erectile dysfunction, unspecified; E03.9 Hypothyroidism, unspecified; E11.9 Type 2 diabetes mellitus without complications; G47.33 Obstructive sleep apnea (adult) (pediatric); I10 Essential (primary) hypertension; E66.01 Morbid (severe) obesity due to excess calories; Z01.812 Encounter for preprocedural laboratory examination; Z01.818 Encounter for other preprocedural examination; Z11.59 Encounter for screening for other viral diseases; Z79.82 Long term (current) use of aspirin; Z79.4 Long term (current) use of insulin; Z68.42 Body mass index [BMI] 45.0-49.9, adult
CPT/HCPCS: 36415; 52005; 71046; 74420; 82948; C1758; J0330; J0696; J1100; J2001; J2405; J2704; Q9967; U0002; J1817

== ENCOUNTER 2020-11-05 11:57 | Inpatient (IN) | payer MEDICARE, OTHER ==
[~2020-11-05] VITALS: Ht 185.4 cm; Wt 156.5 kg
[~2020-11-05 11:57] MED LIST changes: -CEFTRIAXONE SOD 1 GM/NS 50 ML 50 ML IV ONE; -DEXAMETHASONE SOD PHOS INJ 4 MG/ML VIAL ONE; -EPHEDRINE SULFATE INJ 50 MG/ML VIAL ONE; -GLYCOPYRROLATE INJ 0.2 MG/ML VIAL ONE; -INSULIN REGULAR, HUMAN 100 UNIT/1 ML 3ML VIAL ONE; -IOPAMIDOL 300MG/ML 50ML INFUS..BTL IV ONE; -LIDOCAINE HCL 2% LOCAL INJ 5 ML SDV VIAL INJ ONE; -ONDANSETRON HCL INJ 2MG/ML 2ML 2 MG/ML VIAL ONE; -PROPOFOL IV EMULSION 10 MG/ML 20 ML VIAL ONE; -ROCURONIUM BROMIDE 10 MG/ML 5ML VIAL IV ONE; -SEVOFLURANE INHAL SOLN 250 ML PEN BTL ONE; -SUCCINYLCHOLINE CHLORIDE 20 MG/ML 10ML VIAL ONE
[2020-11-05] MEDS ORDERED: PIPERACILLIN/TAZOBACTAM 3.375 GM in SODIUM CHLORIDE 0.9% 50ML 50 ML IV ONE (12:15)
[2020-11-05] MEDS ORDERED: SODIUM CHLORIDE 0.9% 1000ML 1,000 ML IV STA (12:15)
[2020-11-05] MEDS ORDERED: Vancomycin IV 1 GM in SODIUM CHLORIDE 0.9% 250ML 250 ML IV ONE (12:30)
[2020-11-05 12:31] LABS: BASOPHILS % 0.1 % (0.0-1.0); EOSINOPHILS % 0.3 % (0.0-6.0); HEMATOCRIT 41.5 % (38.2-49.6); HEMOGLOBIN 13.8 g/dL (14.0-18.0); LYMPHOCYTES # (AUTO) 0.8 (1.0-3.2); LYMPHOCYTES % 7.5 % (18.0-39.1); MEAN CORPUSCULAR HEMOGLOBIN 31.2 pg (28-32); MEAN CORPUSCULAR HGB CONC 33.3 g/dL (31-35); MEAN CORPUSCULAR VOLUME 93.7 fL (81-99); MONOCYTES # (AUTO) 0.7 (0.2-0.8); MONOCYTES % 6.9 % (4.4-11.3); NEUTROPHILS # (AUTO) 9.2 (2.1-6.9); NEUTROPHILS % 84.9 % (38.7-80.0); PLATELET COUNT 201 x10e3/uL (140-360); RED BLOOD COUNT 4.43 x10e6/uL (4.3-5.7); RED CELL DISTRIBUTION WIDTH 13.8 % (11.7-14.4)
[2020-11-05 12:46] LABS: ALBUMIN/GLOBULIN RATIO 0.9 (0.8-2.0); ANION GAP 14.7 mmol/L (8-16); CALCIUM 8.8 mg/dL (8.4-10.2); CREATININE, SERUM 1.74 mg/dL (0.72-1.25); MAGNESIUM 1.8 MG/DL (1.3-2.1); POTASSIUM 3.7 mmol/L (3.5-5.1)
[2020-11-05 12:52] LABS: CREATINE KINASE MB 1.3 ng/mL (0-5.0)
[2020-11-05 12:54] LABS: B-TYPE NATRIURETIC PEPTIDE2 26.6 pg/mL (0-100)
[2020-11-05] MEDS ORDERED: MORPHINE SULFATE INJ 2 MG/ML SYR IV PRN (13:15)
[2020-11-05] MEDS ORDERED: TETANUS/DIPHTHERIA TOX ADULT 0.5 ML SYR IM ONE (13:15)
[2020-11-05] MEDS ORDERED: DEXTROSE 50% SYRINGE 50 ML IV PRN (13:15)
[2020-11-05] MEDS ORDERED: ONDANSETRON HCL INJ 2MG/ML 2ML 2 MG/ML VIAL IV PRN (13:15)
[2020-11-05 14:55] VITALS: BP 168/78
[2020-11-05 15:50] VITALS: BP 168/78
[2020-11-05] MEDS ORDERED: TRULICITY1.5 MG/0.5 (15:50)
[2020-11-05] MEDS ORDERED: MONTELUKAST SOD10 MG PO (15:50)
[2020-11-05] MEDS ORDERED: IPRATROPIU0.2 MG/1 M INH (15:50)
[2020-11-05] MEDS ORDERED: VESICARE5 MG PO (15:50)
[2020-11-05] MEDS ORDERED: HUMULIN R500 UNIT/1 SQ (15:50)
[2020-11-05 16:04] VITALS: BP 168/78
[2020-11-05] MEDS: PIPERACILLIN/TAZOBACTAM 2.25 GM in SODIUM CHLORIDE 0.9% 50ML 50 ML IV SCH (16:55)
[2020-11-05] MEDS: SODIUM CHLORIDE 0.9% 1000ML 1,000 ML IV SCH (16:55)
[2020-11-05] MEDS: INSULIN LISPRO 100 UNIT/1 ML 3ML VIAL SQ SCH ×2 (16:55→21:00)
[2020-11-05 17:05] VITALS: BP 142/75
[2020-11-05 20:00] VITALS: BP 171/64
[2020-11-05 20:35] VITALS: BP 142/75
[2020-11-06] VITALS (8 sets, daily range): BP systolic 134–172; BP diastolic 59–79
[2020-11-06 04:53] LABS: BASOPHILS % 0.2 % (0.0-1.0); EOSINOPHILS # (AUTO) 0.1 (0.0-0.4); EOSINOPHILS % 0.7 % (0.0-6.0); HEMATOCRIT 40.8 % (38.2-49.6); HEMOGLOBIN 13.3 g/dL (14.0-18.0); LYMPHOCYTES % 11.8 % (18.0-39.1); MEAN CORPUSCULAR HEMOGLOBIN 30.9 pg (28-32); MEAN CORPUSCULAR HGB CONC 32.6 g/dL (31-35); MEAN CORPUSCULAR VOLUME 94.9 fL (81-99); MONOCYTES # (AUTO) 0.9 (0.2-0.8); MONOCYTES % 10.8 % (4.4-11.3); NEUTROPHILS # (AUTO) 6.5 (2.1-6.9); NEUTROPHILS % 76.2 % (38.7-80.0); PLATELET COUNT 210 x10e3/uL (140-360); RED CELL DISTRIBUTION WIDTH 13.8 % (11.7-14.4)
[2020-11-06 05:24] LABS: ALBUMIN 2.6 g/dL (3.5-5.0); ALBUMIN/GLOBULIN RATIO 0.7 (0.8-2.0); ANION GAP 13.8 mmol/L (8-16); CALCIUM 8.8 mg/dL (8.4-10.2); CREATININE, SERUM 1.49 mg/dL (0.72-1.25); POTASSIUM 3.8 mmol/L (3.5-5.1)
[2020-11-06] MEDS ORDERED: LEVOTHYROXINE SODIUM 125 MCG TAB PO SCH (06:00)
[2020-11-06] MEDS: LEVOTHYROXINE SODIUM 112 MCG TAB PO SCH (06:13)
[2020-11-06] MEDS: PIPERACILLIN/TAZOBACTAM 2.25 GM in SODIUM CHLORIDE 0.9% 50ML 50 ML IV SCH ×6 (06:13→23:36)
[2020-11-06] MEDS: SODIUM CHLORIDE 0.9% 1000ML 1,000 ML IV SCH (06:13)
[2020-11-06] MEDS: LEVOTHYROXINE SODIUM 25 MCG TABLET PO SCH (06:13)
[2020-11-06] MEDS: INSULIN LISPRO 100 UNIT/1 ML 3ML VIAL SQ SCH ×4 (07:30→21:00)
[2020-11-06] MEDS: ALLOPURINOL 300 MG TAB PO SCH (09:00)
[2020-11-06] MEDS: MUPIROCIN 2% OINT 22 GM TUBE TOP SCH (09:00)
[2020-11-06] MEDS: ASPIRIN 81 MG ENTERIC COATED PO SCH (09:00)
[2020-11-06] MEDS: LOSARTAN POTASSIUM 25 MG TAB PO SCH (09:00)
[2020-11-06] MEDS: OMEGA 3 POLYUNSAT FATTY ACIDS 1000 MG SOFTGEL PO SCH ×2 (09:00→17:00)
[2020-11-06] MEDS: DOXAZOSIN MESYLATE 2 MG TAB PO SCH ×2 (09:00→17:00)
[2020-11-06] MEDS ORDERED: SOLIFENACIN SUCCINATE 5 MG TAB PO SCH (09:00)
[2020-11-06] MEDS: SOLIFENACIN SUCCINATE 5 MG TAB PO SCH (09:00)
[2020-11-06] MEDS: POVIDONE IODINE 10% 120 ML BTL EXT SCH (09:00)
[2020-11-06] MEDS: MONTELUKAST SODIUM 10 MG TAB PO SCH (09:00)
[2020-11-06] MEDS: HYDROCHLOROTHIAZIDE 25 MG TAB PO SCH (09:00)
[2020-11-06] MEDS: DUTASTERIDE 0.5 MG CAP PO SCH (21:13)
[2020-11-06] MEDS: CRESTOR 10MG PO SCH (21:14)
[2020-11-07] VITALS (10 sets, daily range): BP systolic 153–187; BP diastolic 62–78
[2020-11-07] MEDS: PIPERACILLIN/TAZOBACTAM 2.25 GM in SODIUM CHLORIDE 0.9% 50ML 50 ML IV SCH ×3 (06:06→17:31)
[2020-11-07] MEDS: LEVOTHYROXINE SODIUM 112 MCG TAB PO SCH (06:06)
[2020-11-07] MEDS: LEVOTHYROXINE SODIUM 25 MCG TABLET PO SCH (06:06)
[2020-11-07] MEDS: INSULIN LISPRO 100 UNIT/1 ML 3ML VIAL SQ SCH ×4 (07:30→22:26)
[2020-11-07] MEDS: DOXAZOSIN MESYLATE 2 MG TAB PO SCH ×2 (08:35→17:05)
[2020-11-07] MEDS: ASPIRIN 81 MG ENTERIC COATED PO SCH (08:35)
[2020-11-07] MEDS: SOLIFENACIN SUCCINATE 5 MG TAB PO SCH (08:36)
[2020-11-07] MEDS: MONTELUKAST SODIUM 10 MG TAB PO SCH (08:36)
[2020-11-07] MEDS: HYDROCHLOROTHIAZIDE 25 MG TAB PO SCH (08:36)
[2020-11-07] MEDS: LOSARTAN POTASSIUM 25 MG TAB PO SCH (08:36)
[2020-11-07] MEDS: ALLOPURINOL 300 MG TAB PO SCH (08:37)
[2020-11-07] MEDS: POVIDONE IODINE 10% 120 ML BTL EXT SCH (09:00)
[2020-11-07] MEDS: OMEGA 3 POLYUNSAT FATTY ACIDS 1000 MG SOFTGEL PO SCH ×2 (09:00→17:04)
[2020-11-07] MEDS: MUPIROCIN 2% OINT 22 GM TUBE TOP SCH (09:00)
[2020-11-07] MEDS: DUTASTERIDE 0.5 MG CAP PO SCH (22:23)
[2020-11-07] MEDS: CRESTOR 10MG PO SCH (22:23)
[2020-11-07] MEDS: HYDRALAZINE HCL 20 MG/ML VIAL IV PRN (22:50)
[2020-11-08] VITALS (7 sets, daily range): BP systolic 103–173; BP diastolic 64–89
[2020-11-08] MEDS: PIPERACILLIN/TAZOBACTAM 2.25 GM in SODIUM CHLORIDE 0.9% 50ML 50 ML IV SCH ×4 (00:44→20:00)
[2020-11-08] MEDS: LEVOTHYROXINE SODIUM 25 MCG TABLET PO SCH (05:17)
[2020-11-08] MEDS: LEVOTHYROXINE SODIUM 112 MCG TAB PO SCH (05:18)
[2020-11-08] MEDS: INSULIN LISPRO 100 UNIT/1 ML 3ML VIAL SQ SCH ×4 (07:54→21:00)
[2020-11-08] MEDS: SOLIFENACIN SUCCINATE 5 MG TAB PO SCH (08:15)
[2020-11-08] MEDS: OMEGA 3 POLYUNSAT FATTY ACIDS 1000 MG SOFTGEL PO SCH ×2 (08:15→17:30)
[2020-11-08] MEDS: MONTELUKAST SODIUM 10 MG TAB PO SCH (08:15)
[2020-11-08] MEDS: ASPIRIN 81 MG ENTERIC COATED PO SCH (08:15)
[2020-11-08] MEDS: LOSARTAN POTASSIUM 25 MG TAB PO SCH (08:15)
[2020-11-08] MEDS: ALLOPURINOL 300 MG TAB PO SCH (08:15)
[2020-11-08] MEDS: POVIDONE IODINE 10% 120 ML BTL EXT SCH (08:15)
[2020-11-08] MEDS: MUPIROCIN 2% OINT 22 GM TUBE TOP SCH (08:15)
[2020-11-08] MEDS: HYDROCHLOROTHIAZIDE 25 MG TAB PO SCH (08:15)
[2020-11-08] MEDS: DOXAZOSIN MESYLATE 2 MG TAB PO SCH ×2 (08:15→17:30)
[2020-11-08] MEDS: HYDRALAZINE HCL 20 MG/ML VIAL IV PRN (11:38)
[2020-11-08] MEDS: DUTASTERIDE 0.5 MG CAP PO SCH (21:00)
[2020-11-09] VITALS (8 sets, daily range): BP systolic 121–160; BP diastolic 63–82
[2020-11-09] MEDS: CRESTOR 10MG PO SCH ×2 (05:12→20:53)
[2020-11-09] MEDS: PIPERACILLIN/TAZOBACTAM 2.25 GM in SODIUM CHLORIDE 0.9% 50ML 50 ML IV SCH ×3 (05:20→12:55)
[2020-11-09] MEDS: LEVOTHYROXINE SODIUM 25 MCG TABLET PO SCH (06:11)
[2020-11-09] MEDS: LEVOTHYROXINE SODIUM 112 MCG TAB PO SCH (06:11)
[2020-11-09 06:28] LABS: BASOPHILS % 0.6 % (0.0-1.0); EOSINOPHILS # (AUTO) 0.2 (0.0-0.4); EOSINOPHILS % 3.4 % (0.0-6.0); HEMATOCRIT 38.4 % (38.2-49.6); LYMPHOCYTES # (AUTO) 1.4 (1.0-3.2); LYMPHOCYTES % 20.6 % (18.0-39.1); MEAN CORPUSCULAR HEMOGLOBIN 31.6 pg (28-32); MEAN CORPUSCULAR HGB CONC 33.9 g/dL (31-35); MEAN CORPUSCULAR VOLUME 93.2 fL (81-99); MONOCYTES # (AUTO) 0.8 (0.2-0.8); MONOCYTES % 11.4 % (4.4-11.3); NEUTROPHILS # (AUTO) 4.2 (2.1-6.9); NEUTROPHILS % 63.4 % (38.7-80.0); PLATELET COUNT 261 x10e3/uL (140-360); RED BLOOD COUNT 4.12 x10e6/uL (4.3-5.7); RED CELL DISTRIBUTION WIDTH 13.4 % (11.7-14.4)
[2020-11-09 07:02] LABS: ALBUMIN 2.5 g/dL (3.5-5.0); ALBUMIN/GLOBULIN RATIO 0.7 (0.8-2.0); ANION GAP 13.9 mmol/L (8-16); CALCIUM 9.3 mg/dL (8.4-10.2); CREATININE, SERUM 1.43 mg/dL (0.72-1.25); POTASSIUM 3.9 mmol/L (3.5-5.1)
[2020-11-09] MEDS: ASPIRIN 81 MG ENTERIC COATED PO SCH (09:11)
[2020-11-09] MEDS: LOSARTAN POTASSIUM 25 MG TAB PO SCH (09:12)
[2020-11-09] MEDS: DOXAZOSIN MESYLATE 2 MG TAB PO SCH ×2 (09:12→16:56)
[2020-11-09] MEDS: HYDROCHLOROTHIAZIDE 25 MG TAB PO SCH (09:14)
[2020-11-09] MEDS: MONTELUKAST SODIUM 10 MG TAB PO SCH (09:14)
[2020-11-09] MEDS: OMEGA 3 POLYUNSAT FATTY ACIDS 1000 MG SOFTGEL PO SCH ×2 (09:14→16:56)
[2020-11-09] MEDS: ALLOPURINOL 300 MG TAB PO SCH (09:15)
[2020-11-09] MEDS: SOLIFENACIN SUCCINATE 5 MG TAB PO SCH (09:15)
[2020-11-09] MEDS: INSULIN LISPRO 100 UNIT/1 ML 3ML VIAL SQ SCH ×4 (09:16→20:53)
[2020-11-09] MEDS: MUPIROCIN 2% OINT 22 GM TUBE TOP SCH (15:21)
[2020-11-09] MEDS: POVIDONE IODINE 10% 120 ML BTL EXT SCH (15:21)
[2020-11-09] MEDS: DUTASTERIDE 0.5 MG CAP PO SCH (20:53)
[2020-11-10] VITALS: BP 158/73
[2020-11-10 04:00] VITALS: BP 171/86
[2020-11-10] MEDS: HYDRALAZINE HCL 20 MG/ML VIAL IV PRN (05:05)
[2020-11-10] MEDS: LEVOTHYROXINE SODIUM 25 MCG TABLET PO SCH (05:27)
[2020-11-10] MEDS: LEVOTHYROXINE SODIUM 112 MCG TAB PO SCH (05:27)
[2020-11-10 08:40] VITALS: BP 113/74
[2020-11-10 08:45] VITALS: BP 113/74
[2020-11-10] MEDS: ASPIRIN 81 MG ENTERIC COATED PO SCH (08:50)
[2020-11-10] MEDS: LOSARTAN POTASSIUM 25 MG TAB PO SCH (08:51)
[2020-11-10] MEDS: DOXAZOSIN MESYLATE 2 MG TAB PO SCH ×2 (08:51→16:54)
[2020-11-10] MEDS: OMEGA 3 POLYUNSAT FATTY ACIDS 1000 MG SOFTGEL PO SCH ×2 (08:52→16:53)
[2020-11-10] MEDS: HYDROCHLOROTHIAZIDE 25 MG TAB PO SCH (08:52)
[2020-11-10] MEDS: INSULIN LISPRO 100 UNIT/1 ML 3ML VIAL SQ SCH ×3 (08:52→16:54)
[2020-11-10] MEDS: MONTELUKAST SODIUM 10 MG TAB PO SCH (08:53)
[2020-11-10] MEDS: SOLIFENACIN SUCCINATE 5 MG TAB PO SCH (08:53)
[2020-11-10] MEDS: ALLOPURINOL 300 MG TAB PO SCH (08:53)
[2020-11-10] MEDS ORDERED: CEFTRIAXONE 2 GM in SODIUM CHLORIDE 0.9% 100 ML IV SCH (09:00)
[2020-11-10] MEDS ORDERED: SODIUM CHLORIDE 0.9% 250ML 250 ML ONE (09:07)
[2020-11-10] MEDS: POVIDONE IODINE 10% 120 ML BTL EXT SCH (09:16)
[2020-11-10] MEDS: MUPIROCIN 2% OINT 22 GM TUBE TOP SCH (09:16)
[2020-11-10 12:25] VITALS: BP 173/90
[2020-11-10 16:46] VITALS: BP 151/82
== END 2020-11-10 19:25 | disposition home health service (06) | DRG 854 ==
LOC: ER 12:37 → ERHOLD 13:14 → MED/SURG2 15:14
PROVIDERS: ADMIT Internal Medicine; ATTEND Internal Medicine
PROC: 0JBQ0ZZ Excision of Right Foot Subcutaneous Tissue and Fascia, Open Approach (ICD-10-PCS; principal; 2020-11-07)
PROC: 02HV33Z Insertion of Infusion Device into Superior Vena Cava, Percutaneous Approach (ICD-10-PCS; 2020-11-09)
DX: A41.9 Sepsis, unspecified organism (principal); L03.115 Cellulitis of right lower limb; Z68.42 Body mass index [BMI] 45.0-49.9, adult; E11.621 Type 2 diabetes mellitus with foot ulcer; I10 Essential (primary) hypertension; E78.5 Hyperlipidemia, unspecified; E66.9 Obesity, unspecified; E11.42 Type 2 diabetes mellitus with diabetic polyneuropathy; E11.610 Type 2 diabetes mellitus with diabetic neuropathic arthropathy; L97.513 Non-pressure chronic ulcer of other part of right foot with necrosis of muscle; G47.33 Obstructive sleep apnea (adult) (pediatric); B95.1 Streptococcus, group B, as the cause of diseases classified elsewhere
CPT/HCPCS: 36415; 36569; 71045; 80053; 82550; 82553; 82948; 83605; 83735; 83880; 84484; 85025; 87040; 87071; 87205; 90714; 96372; 99251; 99284; J0360; J0696; J2543; J3370; J7030; J7050